=== PATIENT | female | born 1945 | race Caucasian/White ===

== ENCOUNTER 2018-02-25 15:25 | Emergency (ER) | payer MEDICARE ==
[2018-02-25 15:44] VITALS: BP 139/67
--- NOTE | 2018-02-25 15:48 | UC ---
Upper Extremity HPI - HPI Summary HPI Summary: This pt is a 73 y/o female presenting to [facility] c/o right wrist pain since last night after a fall. Pt reports she had a fall on an outstretched right hand last night. Denies head strike or LOC. Today she presents with swelling, ecchymosis, and pain on her right wrist. Pt notes her pain is aggravated with movement and alleviated with rest. She is able to move her fingers on the right. Denies sensation deficits on the right, elbow pain, shoulder pain. - History of Current Complaint Stated Complaint: WRIST INJURY Time Seen by Provider: 02/25/18 15:38 Hx Obtained From: Patient Onset/Duration: Lasting Hours, Still Present Severity Currently: Mild Pain Intensity: 2 Pain Scale Used: 0-10 Numeric Location Of Pain: Is Discrete @ - right wrist Aggravating Factor(s): Movement Alleviating Factor(s): Rest Associated Signs And Symptoms: Positive: Swelling, Bruising. Negative: Redness , Fever, Weakness, Numbness/Tingling - Allergies/Home Medications Allergies/Adverse Reactions: Allergies Allergy/AdvReac Type Severity Reaction Status Date / Time No Known Allergies Allergy Verified 05/05/16 10:40 Home Medications: Home Medications Amphetamine/Dextroamph ER(NF) [Adderal XR (NF)] 1 cap PO 02/25/18 [History] Aspirin 81 mg PO 02/25/18 [History] Mirtazapine TAB* [Remeron TAB*] 02/25/18 [History] PMH/Surg Hx/FS Hx/Imm Hx Endocrine History: Thyroid Disease Other Endocrine History: DENIES: diabetes Cardiovascular History: Hypertension - Surgical History Surgical History: Yes Surgery Procedure, Year, and Place: TONSILS-. CATARACTS REMOVED. EYE - FOR CORRECTIVE MUSCLE - CROSS EYED - Family History Known Family History: Positive: Cardiac Disease, Hypertension, Diabetes - Mother - Social History Alcohol Use: Rare Substance Use Type: None Smoking Status (MU): Never Smoked Tobacco Review of Systems Constitutional: Negative Skin: Bruising - Righ wrist Eyes: Negative ENT: Negative Respiratory: Negative Cardiovascular: Negative Gastrointestinal: Negative Genitourinary: Negative Motor: Negative Neurovascular: Negative Musculoskeletal: Other: - Right wrist pain and swelling Neurological: Negative Psychological: Negative All Other Systems Reviewed And Are Negative: Yes Physical Exam - Summary Physical Exam Summary: General: well-appearing, no pain distress Skin: warm, color reflects adequate perfusion, dry Head: normal Eyes: EOMI, EDWARDO ENT: normal Neck: supple, nontender Respiratory: CTA, breath sounds present Cardiovascular: RRR Abdomen: soft, nontender Bowel: present Musculoskeletal: RUE: Tender, swelling and ecchymosis on the right wrist in the ulnar aspect. Abrasion on the right elbow with full ROM. Neurological: normal, sensory/motor intact, A&O x3 Psychological: affect/mood appropriate Triage Information Reviewed: Yes Vital Signs Reviewed: Yes Diagnostics - Radiology Right wrist XR Xray Interpretation: No Acute Changes - IMPRESSION: Soft tissue swelling. No fracture is seen. If the patient's symptoms persist recommend follow-up imaging. Dr. Boo has reviewed this radiology report. Radiology Interpretation Completed By: Radiologist Upper Extremity Course/Dx - Course Course Of Treatment: Medications reviewed. DISCUSSED X-RAY RESULTS. COCK UP SPLINT PLACED BY NURSING. NEURO VASCULAR INTACT AFTER SPLINT PLACEMENT. - Differential Dx/Diagnosis Provider Diagnoses: RIGHT WRIST SPRAIN Discharge - Sign-Out/Discharge Documenting (check all that apply): Patient Departure - Discharge All imaging exams completed and their final reports reviewed: Yes - Discharge Plan Condition: Stable Disposition: HOME Patient Education Materials: Wrist Sprain (ED) Referrals: Sammy Wilde MD [Primary Care Provider] - Additional Instructions: FOLLOW UP WITH YOUR DOCTOR IF NOT COMPLETELY IMPROVED. GET RECHECKED FOR ANY WORSENING OF YOUR CONDITION OR QUESTIONS OR CONCERNS. - Billing Disposition and Condition Condition: STABLE Disposition: Home - Attestation Statements Document Initiated by Scribe: Yes Documenting Scribe: Divine Garland Provider For Whom Flo is Documenting (Include Credential): Prashant Boo MD Scribe Attestation: Divine Wheat scribed for Prashant Boo MD on 02/25/18 at 1748. Scribe Documentation Reviewed: Yes Provider Attestation: The documentation as recorded by the Divine fontana accurately reflects the service I personally performed and the decisions made by me, Prashant Boo MD
--- NOTE | 2018-02-25 16:12 | RAD ---
INDICATION: Right wrist injury. TECHNIQUE: 3 views of the right wrist were obtained. FINDINGS: There is mild lateral soft tissue swelling. The bones are in normal alignment. No fracture is seen. IMPRESSION: SOFT TISSUE SWELLING, NO FRACTURE IS SEEN. IF THE PATIENT'S SYMPTOMS PERSIST RECOMMEND FOLLOW-UP IMAGING.
== END 2018-02-25 16:43 | disposition home or self-care (01) ==
LOC: UCEAST 15:25
DX: S63.501A Unspecified sprain of right wrist, initial encounter (principal); W19.XXXA Unspecified fall, initial encounter; Y93.9 Activity, unspecified; Y92.9 Unspecified place or not applicable
CPT/HCPCS: 99212; G0463

== ENCOUNTER 2018-09-25 15:36 | Emergency (ER) | payer MEDICARE ==
--- NOTE | 2018-09-25 16:16 | ED ---
HPI Chest Pain - HPI Summary HPI Summary: Pt is a 73 y/o F presenting to the ED with a chief complaint of chest pain on 09/19/18. [place] was [place] [address] when she experienced sudden onset mid-sternal chest pain that lasted about 20-30 minutes and briefly spread to her jaw. She pulled off at the first rest stop and stayed there until it subsided. As it subsided, her L side alleviated more quickly than her R side. She thought she felt warm, but was not diaphoretic. She has been fine since then, but called Dr. Morrow office and they wanted her to go to the ED as per [facility] protocol. She denies hx of heart disease, renal disease, or abd issues. She has hx of hypothyroidism, osteoporosis, and HTN. - History of Current Complaint Chief Complaint: EDChestPainROMI Time Seen by Provider: 09/25/18 15:52 Hx Obtained From: Patient Hx Last Menstrual Period: post menopause Onset/Duration: Started Days Ago, Resolved Timing: Intermittent, Lasting Minutes Initial Severity: Moderate Current Severity: None Pain Intensity: 0 Pain Scale Used: 0-10 Numeric Chest Pain Location: Mid Sternal Chest Pain Radiates: No Aggravating Factor(s): Nothing Alleviating Factor(s): Nothing Associated Signs and Symptoms: Positive: Chest Pain. Negative: Diaphoresis - Allergy/Home Medications Allergies/Adverse Reactions: Allergies Allergy/AdvReac Type Severity Reaction Status Date / Time No Known Allergies Allergy Verified 09/25/18 15:45 PMH/Surg Hx/FS Hx/Imm Hx Previously Healthy: Yes Endocrine/Hematology History: Reports: Hx Thyroid Disease Denies: Hx Diabetes Cardiovascular History: Reports: Hx Hypertension Denies: Hx Pacemaker/ICD History: Denies: Hx Renal Disease Sensory History: Denies: Hx Hearing Aid Psychiatric History: Denies: Hx Panic Disorder - Surgical History Surgery Procedure, Year, and Place: TONSILS-. CATARACTS REMOVED. EYE - FOR CORRECTIVE MUSCLE - CROSS EYED Infectious Disease History: No Infectious Disease History: Denies: Traveled Outside the [place] in Last 30 Days - Family History Known Family History: Positive: Cardiac Disease, Hypertension, Diabetes - Mother - Social History Alcohol Use: Rare Hx Substance Use: No Substance Use Type: Reports: None Hx Tobacco Use: No Smoking Status (MU): Never Smoked Tobacco Review of Systems Negative: Skin Diaphoresis Positive: Chest Pain All Other Systems Reviewed And Are Negative: Yes Physical Exam - Summary Physical Exam Summary: Appearance: Well-appearing, Well-nourished, lying in bed comfortably Skin: Warm, dry, no obvious rash Eyes: sclera anicteric, no conjunctival pallor ENT: mucous membranes moist, pharynx appears normal Neck: Supple, nontender Respiratory: Clear to auscultation, no signs of respiratory distress Cardiovascular: Normal S1, S2. No murmurs. Normal distal pulses in tibial and radial bilaterally. Abdomen: Soft, nontender, normal active bowel sounds present Musculoskeletal: Normal, Strength/ROM Intact Neurological: A&Ox3, awake and alert, mentation is normal, speech is fluent and appropriate Psychiatric: affect is normal, does not appear anxious or depressed Triage Information Reviewed: Yes Vital Signs On Initial Exam: Initial Vitals Temp Pulse Resp BP Pulse Ox 97.7 F 86 16 187/73 97 09/25/18 15:40 09/25/18 15:40 09/25/18 15:40 09/25/18 15:40 09/25/18 15:40 Vital Signs Reviewed: Yes Diagnostics - Vital Signs Vital Signs Temp Pulse Resp BP Pulse Ox 09/25/18 15:44 81 187/73 96 09/25/18 15:40 97.7 F 86 16 187/73 97 - Laboratory Result Diagrams: 09/25/18 16:16 09/25/18 16:16 Lab Statement: Any lab studies that have been ordered have been reviewed, and results considered in the medical decision making process. - EKG 1543 Cardiac Rate: NL - 81bpm EKG Rhythm: Sinus Rhythm ST Segment: Normal Ectopy: None EKG Comparison: No Significant Change - from 07/28/15. Chest Pain Course/Dx - Course Course Of Treatment: Pt is a 73 y/o F presenting to the ED with a chief complaint of chest pain on 09/19/18. The episode of chest pain was sudden, lasted about 20-30 minutes, was accompanied by some jaw pain and feeling warm, but then it resolved. She noted the L side resolved more quickly than her R. An EKG at 1543 shows NSR at 81bpm. The pt will be discharged with a dx of chest pain, she is agreeable with this plan. - Diagnoses Provider Diagnoses: Chest pain Discharge - Sign-Out/Discharge Documenting (check all that apply): Patient Departure Patient Received Moderate/Deep Sedation with Procedure: No - Discharge Plan Condition: Stable Disposition: HOME Referrals: Sammy Wilde MD [Primary Care Provider] - - Attestation Statements Document Initiated by Ryderibe: Yes Documenting Scribe: Elli Estrada Provider For Whom Flo is Documenting (Include Credential): Carmelo Gunderson MD. Scribe Attestation: Elli Wheat scribed for Carmelo Gunderson MD. on 09/25/18 at [id number]. Status of Scribe Document: Ready
[2018-09-25 16:26] LABS: ABS Basophils 0 10^3/ul (0-0.2); ABS Eosinophils 0.2 10^3/ul (0-0.6); ABS Lymphocytes 1.8 10^3/ul (1.0-4.8); ABS Monocytes 0.6 10^3/ul (0-0.8); ABS Neutrophils 3.9 10^3/ul (1.5-7.7); ABS Nucleated RBC 0 10^3/ul; Eosinophil % 2.7 %; Hematocrit 41 % (33-41); Hemoglobin 13.9 g/dL (12.0-16.0); Lymphocyte % 27.5 %; Mean Corpuscular HGB Conc 34 g/dL (31-36); Mean Corpuscular Hemoglobin 31 pg (27-31); Mean Corpuscular Volume 92 fL (80-97); Nucleated Red Blood Cells % 0; Platelet Count 196 10^3/uL (150-450); Red Blood Count 4.47 10^6 /uL (3.70-4.87); Red Cell Distribution Width 13 % (10.5-15); White Blood Count 6.4 10^3/uL (3.5-10.8)
[2018-09-25 16:41] LABS: Albumin 4.1 g/dL (3.2-5.2); Albumin/Globulin Ratio 1.7 (1-3); BUN/Creatinine Ratio 16.7 (8-20); EGFR African American 80.4 (>60); EGFR Non-African American 66.5 (>60); Globulin 2.4 g/dL (2-4); Potassium 4.3 mmol/L (3.5-5.0); Total Bilirubin 0.3 mg/dL (0.2-1.0); Total Protein 6.5 g/dL (6.4-8.9)
[2018-09-25 17:14] VITALS: BP 145/78
== END 2018-09-25 17:14 | disposition home or self-care (01) ==
LOC: ED 15:36
DX: R07.9 Chest pain, unspecified (principal); I10 Essential (primary) hypertension; E07.9 Disorder of thyroid, unspecified
CPT/HCPCS: 36415; 80053; 84484; 85025; 93005; 99282